=== PATIENT | male | born 1935 | race Caucasian/White ===

== ENCOUNTER 2018-12-11 01:11 | Outpatient (CLI) | payer MEDICARE, OTHER ==
[2018-12-11 08:13] LABS: eGFR (Non-African) > 60
[2018-12-11 08:20] LABS: EOSINOPHILS % 4.7 % (0.0-6.8); MEAN CORPUSCULAR HEMOGLOBIN 32.6 pg (28.0-34.0); MONOCYTES % 7.9 % (0.0-11.0)
[2018-12-11 08:21] LABS: BASOPHILS % 0.4 % (0.0-1.5); NEUTROPHILS # 4.7 # k/uL (1.4-7.7)
[2018-12-11 08:27] LABS: APPEARANCE,URINE CLEAR (CLEAR); COLOR,URINE YELLOW (YELLOW); OCCULT BLOOD,URINE NEGATIVE (NEGATIVE); UROBILINOGEN URINE 0.2 Eu (0.2-1.0)
== END 2018-12-11 01:13 ==
LOC: LAB 01:11
PROVIDERS: ATTEND Internal Medicine
DX: N39.0 Urinary tract infection, site not specified (principal); I10 Essential (primary) hypertension; G30.9 Alzheimer's disease, unspecified
CPT/HCPCS: 36415; 80053; 81002; 85025; 87086

== ENCOUNTER 2019-01-07 07:10 | Outpatient (CLI) | payer MEDICARE, OTHER ==
[2019-01-20 14:48] LABS: HDL 40 mg/dL (>40); eGFR (Non-African) > 60
== END 2019-01-07 07:13 ==
LOC: LAB 07:10
PROVIDERS: ATTEND Internal Medicine
DX: I10 Essential (primary) hypertension (principal); I70.0 Atherosclerosis of aorta; R60.9 Edema, unspecified
CPT/HCPCS: 80053; 80061; 84443; 86140

== ENCOUNTER 2019-07-26 07:30 | Outpatient (CLI) | payer MEDICARE, OTHER ==
[2019-07-26 08:21] LABS: APPEARANCE,URINE CLEAR (CLEAR); COLOR,URINE YELLOW (YELLOW); OCCULT BLOOD,URINE 3+ (NEGATIVE); UROBILINOGEN URINE 0.2 Eu (0.2-1.0)
== END 2019-07-26 07:35 ==
LOC: LAB 07:30
PROVIDERS: ATTEND Nurse Practitioner Family
DX: J30.9 Allergic rhinitis, unspecified (principal); G30.9 Alzheimer's disease, unspecified; I10 Essential (primary) hypertension
CPT/HCPCS: 81002; 87086